=== PATIENT | female | born 1995 | race Caucasian/White ===

== ENCOUNTER → 2018-03-20 16:36 | Outpatient (CLI) | payer BC, SELFPAY ==
--- NOTE | 2018-03-20 16:48 | RAD_ITS ---
STUDY: X-RAY - LUMBAR SPINE REASON FOR EXAM: Female, 22 years old. Back pain one week TECHNIQUE: 5 view(s) of the lumbar spine were obtained. COMPARISON: February 08, 2013 lumbar spine x-ray FINDINGS: Normal lumbar lordosis. There is no substantial scoliosis. There is a normal alignment of the vertebrae. Normal vertebral bodies and endplates. Normal disc space heights. There is abundant stool in the colon. RAD/L/S Spine Min 4 Views IMPRESSION: Normal x-ray examination of the lumbar spine. Electronically Signed: Mamie Beal MD at 19:53 EDT Tel , Service support ,
== END ==
PROVIDERS: Family Provider Family Medicine; PCP Family Medicine; Referring Provider Family Medicine; Visit Provider Family Medicine
DX: M54.5 Low back pain (principal)
CPT/HCPCS: 72110

== ENCOUNTER → 2018-04-20 10:56 | Outpatient (CLI) | payer BC, SELFPAY ==
[2014-12-29 13:20] VITALS: BMI 24.5
--- NOTE | 2018-04-20 11:05 | RAD_ITS ---
HISTORY: ABDOMINAL PAIN, CONSTIPATION, IBS EXAM: Abdominal series 2 views COMPARISON: None FINDINGS: The colon is nondilated and shows a moderate to large amount of fecal residue. The small bowel is nondistended. No soft tissue mass, organomegaly, or suspicious calcifications. RAD/Abdomen Single View IMPRESSION: Constipation pattern. No acute disease seen. at 7594 Reported and signed by: Deon Gibbons MD Electronically Signed: Deon Gibbons, at 4:40 EST Tel , Service support ,
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
--- OUTSIDE RECORDS SUMMARY | 2018-06-15 13:22 | XMS RPT_ITS ---
:1995 Author Organization [facility] Address [address] [place] [address] Phone Care Team Providers Name Role Phone Goldy'Seth PA-C, Michelle Unavailable Reason for Visit Reason For Visit Description Start Date New - 1st visit with practice Preliminary reason for visit data, not yet signed by the author as of lower back pain Preliminary reason for visit data, not yet signed by the author as of Chief Complaint Chief Complaint Description Start Date lower back pain Preliminary chief complaint data, not yet signed by the author as of Instructions Instruction Description Start Date Patient advised to follow-up with Primary Care Physician for BMI management. Plan of Care Type Date Detail Pending order MRI lumbar without contrast Medications Medication Instructions Start Stop Generic Name NDC Provider Date Date MEDROL 4 MG Take as METHYLPREDNISOLONE [id number] Michelle TBPK D'Seth PA-C DICYCLOMINE take 1 tablet DICYCLOMINE HCL 50332885560 Nellie HCL 20 MG TABS every 6 hours /21 [place] [employer]CH[employer] as needed Conditions or Problems Problem Name Problem Onset Status Entry Provider Comment Standard Annotate Code Date Date Description Spina bifida 48109957 Active Michelle Spina bifida occulta (SNOMED 06/17 06/[address]) PA-C 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 Vital Signs Date Name Value Unit Description BMI (Body Mass 26.55 kg/m2 Body Mass Index Index) [Ratio] Preliminary vital sign data, not yet signed by the author as of BP Diastolic 74 mm[Hg] blood pressure, diastolic Preliminary vital sign data, not yet signed by the author as of BP Systolic 111 mm[Hg] blood pressure, systolic Preliminary vital sign data, not yet signed by the author as of Heart Rate 101 /min pulse rate E&M Preliminary vital sign data, not yet signed by the author as of Height 61 [in_us] height E&M Preliminary vital sign data, not yet signed by the author as of Height 155 cm height in centimeters E&M Preliminary vital sign data, not yet signed by the author as of Weight Measured 140 [lb_av] weight E&M Preliminary vital sign data, not yet signed by the author as of Weight Measured 64 kg weight in kilograms E&M Preliminary vital sign data, not yet signed by the author as of Results Date Name Value Unit Range Flag Description Office Visit: New - 1st visit with practice, Rm: 1 MEDS REVIEW Done Documentation of current medications (procedure) Preliminary observation data, not yet signed by the author as of Preliminary observation data, not yet signed by the author as of XRAY HX of the lumbar on xray history 03/27/2018 Preliminary observation data, not yet signed by the author as of Clinical Summary: Scanned ROS Summary ROS: Denies genitourinary review of systems, E&M ROS GI COM Heart Gastrointestional Burn,Constipati review of systems, on,Nausea,Vomit comment ing,Diarrhea ROS: GI Complains ROS gastrointestinal E&M ROS ENDO Denies endocrine ROS ROS MSK COMM Muscle ROS Musculoskeletal Cramps,Pain comments ROS:MUSCSKEL Complains ROS musculoskeletal E&M ROS: PSYCH Denies ROS psychiatric E&M ROS HEME Denies ROS hematologic/lymphatic E&M ROS SKIN Denies ROS skin E&M ROS ENT COMM Runny Nose,Sore ROS ENT comment Throat ROS ENT Complains ROS ENT E&M ROS:GENERAL Denies ROS general E&M ROS: NEURO Denies ROS neurological E&M ROS:PULMON Denies ROS pulmonary E&M ROS: CARDIAC Denies ROS cardiovascular E&M Clinical Summary: HMSPatientID OOP account number Procedures Code Procedure Name Date Entry Date G8730 Pain assessment documented as positive - follow-up documented G8427 Current medications documented 1036F Tobacco screening was negative - non user G8417 BMI documented as above normal parameters - follow-up documented G8783 Blood pressure within normal parameters - no follow-up required [facility]-[id number] Patient Encounter Medications Administered No information available. Immunizations No information available. Advance Directives There may be information available, but it has not been provided by the sender. Assessments There may be information available, but it has not been provided by the sender. Review of Systems There may be information available, but it has not been provided by the sender. Family History There may be information available, but it has not been provided by the sender. History of Past Illness There may be information available, but it has not been provided by the sender. History of Present Illness There may be information available, but it has not been provided by the sender.
--- OUTSIDE RECORDS SUMMARY | 2018-06-15 13:22 | XMS RPT_ITS ---
:1995 Author Organization [employer] Address [address] [place] [address] Phone Care Team Providers Name Role Phone Jaya Esteves MD Unavailable Reason for Visit Reason For Visit Description Start Date New/Est - 1st visit with physician Preliminary reason for visit data, not yet signed by the author as of back Preliminary reason for visit data, not yet signed by the author as of Chief Complaint Chief Complaint Description Start Date back Preliminary chief complaint data, not yet signed by the author as of Instructions Instruction Description Start Date Completed Plan of Care Type Date Detail Appointment 09:30 AM Jaya Esteves MD, [address] [facility], [place], [address], Patient education Medications Medications Medication Instructions Start Stop Generic Name NDC Provider Date Date MOBIC 15 MG one a day / MELOXICAM [id number] Jaya Reyes TABS 14 [place] POST DICYCLOMINE HCL take 1 tablet / DICYCLOMINE 11398707667 Nellie 20 MG TABS every 6 hours as 21 HCL Sarahi [employer]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 Conditions or Problems Problem Name Problem Onset Status Entry Provider Comment Standard Annotate Code Date Date Description Low back pain 618595097 Active Jaya Reyes Low back pain (SNOMED 07/06 07/[address]) Spina bifida 25888917 Active Michelle Spina bifida occulta (SNOMED 06/17 06/[address]) PA-C Pars defect of 345840729 Active Michelle Spondylolysis L5 lumbar spine (SNOMED [...] by the author as of BP Diastolic 76 mm[Hg] blood pressure, diastolic Preliminary vital sign data, not yet signed by the author as of BP Systolic 118 mm[Hg] blood pressure, systolic Preliminary vital sign data, not yet signed by the author as of Heart Rate 88 /min pulse rate E&M Preliminary vital sign [...] Value Unit Range Flag Description Office Visit: New/Est - 1st visit with physician, Rm: 20 MEDS REVIEW Done Documentation of current medications (procedure) Preliminary observation data, not yet signed by the author as of MRI HX of the back on MRI (magnetic 04/28/2018 at [facility] resonance imaging) history Preliminary observation data, not yet signed by the author as of XRAY HX of the lumbar on xray history 03/27/2018 Preliminary observation data, not yet signed by the author as of Preliminary observation data, not yet signed by the author as of Clinical Summary: HMSPatientID OOP account number Procedures Code Procedure Name Date Entry Date G8730 Pain assessment documented as positive - follow-up documented G8427 Current medications documented 1036F Tobacco screening was negative - non user G8419 BMI outside of normal parameters - no follow-up plan/reason not given G8783 Blood pressure within normal parameters - no follow-up required [facility]-[id number] Patient Encounter Medications Administered No information available. [...]
== END ==
PROVIDERS: Family Provider Family Medicine; PCP Family Medicine; Referring Provider Family Medicine; Visit Provider Family Medicine
DX: K58.9 Irritable bowel syndrome, unspecified (principal); M54.5 Low back pain; R10.9 Unspecified abdominal pain
CPT/HCPCS: 74018

== ENCOUNTER 2018-05-18 08:30 | Outpatient (RCR) | payer BC, SELFPAY ==
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
--- NOTE | 2018-05-18 12:05 | HP.PTDCSUM_ITS ---
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 for a total of 14 visit(s). Discharge Date: 05/18/18 Please see the following information for a summary of their discharge status. - Subjective Subjective: PATIENT REPORTS SHE IS MUCH BETTER. 95% BETTER. SHE REPORTS SHE IS ALMOST BACK TO WHERE SHE WAS BEFORE HER FLARE UP ABOUT 3 MONTHS AGO. SHE STILL HAS MILD CONSTANT PAIN. SHE REPORTS SHE HAS HAD AT LEAST 1/10 LOW BACK PAIN SINCE THE BEGINNING OF FEB 2018. SHE REPORTS SHE IS STILL HAVING PROBLEMS WITH HER IBS BUT IT IS BETTER. SHE STATES SHE IS GOING TO FOLLOW UP WITH DR. PARKINSON AND GET A REFERRAL TO A GI SPECIALIST. SHE ALSO PLANS TO HAVE FOOD ALLERGY TESTING. PATIENT REPORTS SHE FOLLOWED UP AT THE [facility] AND SAW DR. CHANDRA. SHE REPORTS HE TOLD HER HER MRI OF HER BACK LOOKS GOOD IN TERMS OF HER SPINE AND HE RELEASED HER TO UNLIMITED ACTIVITY. NO FURTHER FOLLOW UP SCHEDULED AT [facility] AT THIS TIME. STATES ANTI-INFLAMMATORY PRESCRIBED BUT HASN'T TAKEN YET BECAUSE HER PAIN IS MANAGABLE AND SHE DOESN'T WANT TO MESS WITH HER STOMACH. PATIENT REPORTS SHE HAS BEEN ABLE TO RESUME DOING THE ELIPTICAL OVER THE LAST WEEK WITHOUT INCREASED PAIN. PATIENT REPORTS SHE THINKS STRESS MIGHT BE RELATED TO HER PAIN AND SHE ALSO WANTS TO PURSUE THE POSSABILITY OF HORMONAL PROBLEMS AND FOOD ALLERGIES BECAUSE IT IS NOT HER SPINE. - Pain LEFT LOW BACK Pain Intensity (Out of 10): 1 LEFT HIP HIP Pain Intensity (Out of 10): 1 ABDOMINAL Pain Intensity (Out of 10): 3 - Overall Improvement % Improvement: 95 - Objective Objective/Function: ALL GOALS HAVE BEEN MET HOWEVER PATIENT HAS NOT RETURNED TO CROSS FIT YET AND PLANS TO TRY TO EASE BACK INTO IT HER SX'S ALLOW. SHE IS STILL REPORTING CONOSTANT LBP BUT IT IS MORE MILD NOW. UPON EXAM: INDEP GAIT INTO PT WITH NO GROSS DEVIATIONS NOTED. Motor deficit: CHANDLER LE'S 5/5 WITH MMT'ING. Sensory deficit: NO. ROM deficit: CHANDLER LE'S WFL. Dural Signs: NEGATIVE CHANDLER LE'S. Lumbar mvmt loss: flex - NIL. ext - MIN. R SG - NIL. L SG - NIL. PATIENT REPORTS INCREASED LEFT LBP AT END RANGE EXT IN LYING. RIGHT LUMBAR REGION IS TENDER WITH PALPATION. OTHERWISE SHE DOES NOT HAVE LUMBOSACRAL TENDERNESS INCLUDING CHANDLER SI JOINT REGIONS. Core strength: GOOD. LUMBAR OSWESTRY HAS IMPROVED FROM 6 TO 1. - Goals Goal 1:: DECREASE C/O LOW BACK AND CHANDLER LE SX'S. Goal Progress: Goal Met Goal 2:: IMPROVE SITTING, LIFTING, WALKING, STANDING, SOCIAL LIFE, TRAVEL, WORK/HOMEMAKING AND FITNESS EX FUNCTION. Goal Progress: Goal Met Goal 3:: INSTRUCT IN PROPHYLAXIS Goal Progress: Goal Met - Plan Plan: D/C. PATIENT AGREEABLE. - D/C Information If there are questions or concerns regarding this patient's physical therapy, please feel free to call me at [phone]. Thank you for the referral of this patient. Sincerely, Vaishali Ho, PT, Cert MDT
== END 2018-05-18 13:44 | disposition home or self-care (01) ==
LOC: PT 08:30
PROVIDERS: Family Provider Family Medicine; PCP Family Medicine; Referring Provider Family Medicine; Visit Provider Family Medicine
DX: M54.5 Low back pain (principal); M43.06 Spondylolysis, lumbar region
CPT/HCPCS: 97014; 97035; 97113; 97162; 97530; G0283

== ENCOUNTER → 2019-02-28 11:59 | Outpatient (CLI) | payer BC, SELFPAY ==
[2018-05-31 14:14] VITALS: BMI 24.5
[2019-02-28 15:44] LABS: Absolute Lymphocyte Count 2.19 X10^3/uL (0.83-4.51); Absolute Neutrophil Count 3.8 X10^3/uL (2.0-7.7); Basophil# 0.04 X10^3/uL; Basophil% 0.6 % (0-1); Eosinophil# 0.07 X10^3/uL; Eosinophils% 1.1 % (0-5); Hematocrit 42.2 % (37-47); Hemoglobin 13.9 g/dL (12.0-15.0); Lymphocyte # 2.19 X10^3/ul (4.0); Lymphocyte % 33.4 % (19-41); Mean Corp Hgb Conc 32.9 g/dL (32-36); Mean Corpuscular Hgb 30.7 pg (27.0-32.0); Mean Corpuscular Volume 93.2 fL (81-99); Monocyte# 0.46 X10^3/uL; NRBC Flagged by Analyzer 0 % (0-5); Neutrophil # 3.79 X10^3/uL (2.7-7.7); Neutrophil % 57.7 % (47-70); Platelet Count 290 K/mm3 (150-450); RBC Distribution Width CV 11.9 % (11.6-14.6); RBC Distribution Width SD 40.8 fl (35.1-43.9); Red Blood Count 4.53 M/mm3 (4.2-5.4); White Blood Count 6.6 K/mm3 (4.4-11.0)
[2019-02-28 16:01] LABS: ALB/GLOB Ratio 1.4 RATIO (0.9-2.4); AST(SGOT) 16 U/L (15-37); Alanine Aminotransfer ALT/SGPT 23 U/L (13-56); Albumin, Serum 4.2 g/dL (3.2-5.0); Alkaline Phosphatase 72 U/L (45-117); Anion Gap 4 (5-15); BUN 7 mg/dL (7-18); BUN/Creat Ratio 8.3 RATIO (10-20); Calcium,Total 8.7 mg/dL (8.5-10.1); Chloride 107 mmol/L (98-107); Cholesterol 117 mg/dL (200); Creatinine, Serum 0.84 mg/dL (0.55-1.02); EST Glomerular Filtration Rate 89 mL/min (>60); Est Glom Filt Rate - Afr Amer 108 mL/min (>60); Globulin 2.9 g/dL (2.2-4.2); Glucose 90 mg/dL (74-106); High Density Lipoprotein 49 mg/dL; Potassium 3.6 mmol/L (3.5-5.1); Protein, Total 7.1 g/dL (6.4-8.2); Sodium Level 140 mmol/L (136-145); T4 Free Direct 1.13 ng/dL (0.76-1.46); Thyroid Stim Hormone (TSH) 0.73 uIU/mL (0.358-3.74); Triglycerides 90 mg/dL; Very Low Density Lipoprotein 18 mg/dL (5-40); Vitamin B12 193 pg/mL (211-911); Vitamin D,25 Hydroxy 17.8 ng/mL (29.95-100.01)
[2019-03-02 16:07] LABS: Endomysial Antibody IgA Negative (Negative); Immunoglobulin A 79 mg/dL (87-352)
[2019-03-02 18:31] LABS: t-Transglutaminase IgA <2 U/mL (0-3)
== END ==
PROVIDERS: Family Provider Family Medicine; PCP Family Medicine; Visit Provider Family Medicine
DX: Z00.00 Encounter for general adult medical examination without abnormal findings (principal); R53.83 Other fatigue; R10.9 Unspecified abdominal pain; N94.6 Dysmenorrhea, unspecified; Z83.438 Family history of other disorder of lipoprotein metabolism and other lipidemia
CPT/HCPCS: 36415; 80053; 80061; 82306; 82607; 82784; 83516; 84439; 84443; 85025; 86255

== ENCOUNTER → 2019-04-12 09:09 | Outpatient (CLI) | payer BC, SELFPAY ==
[2018-05-31 14:14] VITALS: BMI 24.5
[2019-04-13 16:33] LABS: Endomysial Antibody IgA Negative (Negative)
[2019-04-14 12:57] LABS: Deamidated Gliadin IgA 5 units (0-19); Deamidated Gliadin IgG 6 units (0-19); Immunoglobulin A 85 mg/dL (87-352); t-Transglutaminase IgA <2 U/mL (0-3)
== END ==
PROVIDERS: Family Provider Family Medicine; PCP Family Medicine; Visit Provider Internal Medicine Gastroenterology
DX: R10.9 Unspecified abdominal pain (principal); E53.8 Deficiency of other specified B group vitamins
CPT/HCPCS: 36415; 82784; 83516; 86255

== ENCOUNTER → 2019-04-18 08:16 | Outpatient (CLI) | payer BC, SELFPAY ==
[2018-05-31 14:14] VITALS: BMI 24.5
--- NOTE | 2019-04-18 08:20 | RAD_ITS ---
CLINICAL HISTORY: Female, 23 years old. PROCEDURE: CONSENT: SEDATION: FLUOROSCOPY TIME (if supplied): ( ) minutes/seconds TECHNIQUE: The preliminary film of the abdomen is nonspecific. Patient swallowed barium. Multiple images were taken immediately than after 15, 30 and 60 minutes and showed normal appearance of the stomach, and duodenum. Normal appearance of the jejunum and ileum. Barium reached the the ileum and ileocecal valve within less than 60 minutes. No evidence of thickening of the small bowel wall, narrowing or cobblestoning to suggest inflammatory bowel disease. No skip lesion identified. RAD/Small Bowel Series Only IMPRESSION: Negative small bowel series Electronically Signed: Austin Le, at 14:07 EST Tel , Service support ,
== END ==
PROVIDERS: Family Provider Family Medicine; PCP Family Medicine; Referring Provider Internal Medicine Gastroenterology; Visit Provider Internal Medicine Gastroenterology
DX: R10.9 Unspecified abdominal pain (principal)
CPT/HCPCS: 74250

== ENCOUNTER → 2020-05-27 09:57 | Outpatient (CLI) | payer BC, SELFPAY ==
[2018-05-31 14:14] VITALS: BMI 24.5
[2020-05-27 12:20] LABS: Absolute Lymphocyte Count 1.39 X10^3/uL (0.83-4.51); Absolute Neutrophil Count 3.3 X10^3/uL (2.0-7.7); Basophil# 0.04 X10^3/uL; Basophil% 0.8 % (0-1); Eosinophil# 0.05 X10^3/uL; Hematocrit 37.9 % (37-47); Hemoglobin 12.4 g/dL (12.0-15.0); Lymphocyte # 1.39 X10^3/ul (4.0); Lymphocyte % 27.2 % (19-41); Mean Corp Hgb Conc 32.7 g/dL (32-36); Mean Corpuscular Hgb 29.6 pg (27.0-32.0); Mean Corpuscular Volume 90.5 fL (81-99); Mean Platelet Vol. 10.8 fl (6.2-12.0); Monocyte# 0.36 X10^3/uL; NRBC Flagged by Analyzer 0 % (0-5); Neutrophil # 3.26 X10^3/uL (2.7-7.7); Neutrophil % 63.8 % (47-70); Platelet Count 308 K/mm3 (150-450); RBC Distribution Width CV 11.4 % (11.6-14.6); Red Blood Count 4.19 M/mm3 (4.2-5.4); White Blood Count 5.1 K/mm3 (4.4-11.0)
[2020-05-27 12:45] LABS: ALB/GLOB Ratio 1.4 RATIO (0.9-2.4); AST(SGOT) 10 U/L (15-37); Alanine Aminotransfer ALT/SGPT 17 U/L (13-56); Albumin, Serum 4.2 g/dL (3.2-5.0); Alkaline Phosphatase 60 U/L (45-117); BUN 9 mg/dL (7-18); BUN/Creat Ratio 10.2 RATIO (10-20); Calcium,Total 8.8 mg/dL (8.5-10.1); Cholesterol 130 mg/dL (200); Creatinine, Serum 0.88 mg/dL (0.55-1.02); EST Glomerular Filtration Rate 84 mL/min (>60); Est Glom Filt Rate - Afr Amer 101 mL/min (>60); Glucose 81 mg/dL (74-106); Protein, Total 7.2 g/dL (6.4-8.2); Triglycerides 62 mg/dL
[2020-05-27 12:46] LABS: Anion Gap 7 (5-15); Chloride 108 mmol/L (98-107); Estradiol 34.4 pg/mL; High Density Lipoprotein 52 mg/dL; Potassium 3.7 mmol/L (3.5-5.1); Sodium Level 140 mmol/L (136-145); T4 Free Direct 1.32 ng/dL (0.76-1.46); Thyroid Stim Hormone (TSH) 1.17 uIU/mL (0.358-3.74); Very Low Density Lipoprotein 12 mg/dL (5-40)
[2020-05-27 12:47] LABS: Progesterone Level 0.97 ng/mL (See Comment); Vitamin B12 717 pg/mL (211-911); Vitamin D,25 Hydroxy 65.5 ng/mL
== END ==
PROVIDERS: PCP Family Medicine; Visit Provider Family Medicine
DX: N94.6 Dysmenorrhea, unspecified (principal); E55.9 Vitamin D deficiency, unspecified; E53.8 Deficiency of other specified B group vitamins; R55 Syncope and collapse; R53.83 Other fatigue
CPT/HCPCS: 36415; 80053; 80061; 82306; 82607; 82670; 84144; 84439; 84443; 85025

== ENCOUNTER → 2022-02-20 | Outpatient (CLI) | payer BC, SELFPAY ==
[2022-02-20 09:16] LABS: Absolute Lymphocyte Count 2.07 X10^3/uL (0.83-4.51); Absolute Neutrophil Count 3.1 X10^3/uL (2.0-7.7); Basophil# 0.04 X10^3/uL; Basophil% 0.7 % (0-1); Eosinophils% 1.7 % (0-5); Hematocrit 40.4 % (37-47); Hemoglobin 13.6 g/dL (12.0-15.0); Lymphocyte # 2.07 X10^3/ul (0.83-4.51); Lymphocyte % 35.8 % (19-41); Mean Corp Hgb Conc 33.7 g/dL (32-36); Mean Corpuscular Hgb 29.8 pg (27.0-32.0); Mean Corpuscular Volume 88.4 fL (81-99); Mean Platelet Vol. 10.8 fl (6.2-12.0); Monocyte# 0.43 X10^3/uL; Monocyte% 7.4 % (0-10); NRBC Flagged by Analyzer 0 % (0-5); Neutrophil # 3.14 X10^3/uL (2.7-7.7); Neutrophil % 54.2 % (47-70); Platelet Count 336 K/mm3 (150-450); RBC Distribution Width SD 38.9 fl (35.1-43.9); Red Blood Count 4.57 M/mm3 (4.2-5.4); White Blood Count 5.8 K/mm3 (4.4-11.0)
[2022-02-20 09:46] LABS: BUN 11 mg/dL (7-18); Creatinine, Serum 0.92 mg/dL (0.55-1.02); Glucose 87 mg/dL (74-106)
[2022-02-20 09:47] LABS: ALB/GLOB Ratio 1.3 RATIO (0.9-2.4); AST(SGOT) 10 U/L (15-37); Alanine Aminotransfer ALT/SGPT 16 U/L (13-56); Albumin, Serum 3.8 g/dL (3.2-5.0); Alkaline Phosphatase 64 U/L (45-117); Anion Gap 5 (5-15); BUN/Creat Ratio 11.9 RATIO (10-20); Calcium,Total 8.6 mg/dL (8.5-10.1); Chloride 106 mmol/L (98-107); Cholesterol 132 mg/dL (200); EST Glomerular Filtration Rate 78 mL/min (>60); Est Glom Filt Rate - Afr Amer 95 mL/min (>60); High Density Lipoprotein 52 mg/dL; Protein, Total 6.8 g/dL (6.4-8.2); Sodium Level 140 mmol/L (136-145); T4 Free Direct 1.16 ng/dL (0.76-1.46); Thyroid Stim Hormone (TSH) 1.05 uIU/mL (0.358-3.74); Triglycerides 86 mg/dL; Very Low Density Lipoprotein 17 mg/dL (5-40)
[2022-02-22 09:19] LABS: Vitamin B12 287 pg/mL (211-911)
== END | disposition home or self-care (01) ==
LOC: LAB 08:32
PROVIDERS: PCP Family Medicine; Referring Provider Family Medicine; Visit Provider Family Medicine
DX: Z00.00 Encounter for general adult medical examination without abnormal findings (principal); E55.9 Vitamin D deficiency, unspecified; E53.8 Deficiency of other specified B group vitamins; R53.83 Other fatigue
CPT/HCPCS: 36415; 80053; 80061; 82306; 82607; 84439; 84443; 85025